=== PATIENT | male | born 1955 | race Caucasian/White ===

== ENCOUNTER 2018-05-03 08:02 | Outpatient (RCR) | payer OTHER | END 2018-05-14 | LOC: M CR 08:02 | DX: Z95.1 Presence of aortocoronary bypass graft (principal) | CPT/HCPCS: 93798 ==

== ENCOUNTER 2018-06-11 10:45 | Outpatient (RCR) | payer OTHER ==
--- NOTE | 2018-05-24 13:31 | CARECAPL ---
Assessment Account #s: Re-Assessment I General Diagnoses: CABG Date of event: Mar 22, 2018 Physician: Yamini Ontiveros M.D. Risk strat for cardiac event: Low Exercise Date: May 24, 2018 Assessment: Re-Assessment I Exercise Prescription Plan TO EDUCATE AND INCREASE ENDURANCE THROUGH MONITORED EXERCISE Modalities initiated: Treadmill (METS=2.99/RPE=-2), Cardio-Strider (METS=2.7/RPE=3), Arm Aerometer (METS=3.4/RPE=2), Dumbells (RPE=2), Recumbent Bike (METS=3.8/RPE=2) Frequency: 3 Duration (Minutes) 30-60 minutes total exercise a day. 8-15 work intervals in minutes. 5 MINUTES PRN rest intervals in minutes. Functional Capacity Goal Sustained Metabolic Equivalent of a task (MET) goal of 4.0-5.0 for 15-20 minutes. Intensity: 3-Moderate Progression (METS) Increase by: 0.5 METS every: 5 sessions TOLERATED Angina with ex: No Resistance Training: Yes Weight (pounds): 4 Reps: 12-15 Hypertension: Yes Hypertension controlled with: Medication Resting 110/62 Peak Exercise BP 144/80 Medications Scheduled Ascorbic Acid (Vitamin C), 500 MG PO DAILY, (Reported) Aspirin (Bhargav Aspirin), 325 MG PO DAILY, (Reported) Cholecalciferol (Vitamin D), 1,000 UNIT PO DAILY, (Reported) Lisinopril (Lisinopril), 20 MG PO DAILY, (Reported) Multivitamins (Centrum Silver Adult 50+), 1 TAB PO DAILY, (Reported) Omeprazole (Omeprazole), 20 MG PO DAILY, (Reported) Potassium Citrate (Potassium Citrate ER), 99 MG PO DAILY, (Reported) Rosuvastatin (Crestor), 10 MG PO DAILY, (Reported) Trazodone HCl (Trazodone HCl), 50 MG PO QHS, (Reported) Scheduled PRN Ranitidine HCl (Ranitidine HCl), 1 TAB PO DAILYPRN PRN for INDIGESTION, (Reported) Current BP 98/56 Med Change: No Intervention Resistance Training: Yes Education: Self pulse, Ex safety, S/S to report, Low NA diet, BP medication, RPE Scale, Equipment orientation, warm up/cool down, Understand BP, Physical Active Target Goals Individual exercise Rx (1) BP 140/90 or 130/80 if DM or CKD (1) Aerobic active 30+min 5 days per week (1) Nutrition Date: May 24, 2018 Assessment: Re-Assessment I Lipid- med/supplement CRESTOR 10 MG DAILY Med Change: No Diabetes Diabetes: No Monitor Blood Sugar at home: No Medication Change: No Blood sugar in range: No Weight Management Weight (lbs): 186.4 Special Diet: regular Vitamin/Supplements: Multivitamin, Vitamin C, Vitamin D Alcohol: none Current Weight (pounds): 186.4 Intervention Brancher Consult: No Nurse/patient discussion: Yes Dietary Goals STRIVING TO MAKE BETTER DIETARY CHOICES Diet Class: No Referral to Diabetes education: No Referral to lipid clinic: No Referral to weight mangement p: No Education Eating Healthy Target goal LDL-C<100 if triglycerides are >200 Non-HDL-C should be <130 (1) LDL-C<70 for high risk patients (4) HbA1c<7% (1) BMI<25 Waist cir<40in M/<35in F (1) Education Date: May 24, 2018 Assessment: Re-Assessment I Family Support: Yes Tobacco use: No Tobacco Use Smokeless tobacco: No Intervention Referral to smoking cessation: No Individual education and couns: No Tobacco Adjunct: No Education class schedule given: No Attended education classes: No Education: CAD, Risk factors, med compliance, cardiac A&P, Angina S/S, Sexuality Target Goals Complete cessation of tobacco use (1). Psychosocial Date: May 24, 2018 Assessment: Re-Assessment I Intervention Physician Consult: No Physician Referral: No Med Change: No Stress Management Class: No Uses Stress Management Skills: Yes Education Education: Coping Techniques, S/S depression, Relaxation Techniques Education Goals Met: Yes Target Goal Assess presence or absence of depression using a valid screening tool (1). Maximize coping skills (2). Positive support system (2). Patient/Program Goal Preventative Medication: Yes Aspirin, Yes JULIO C Inhibitor, Yes Statin/OTR lipid Lowering Fall Risk Assess: Yes (NOT FALL RISK) Provider Assessment Session Number: 5 Nam Brothers RN May 24, 2018 13:31
[~2018-06-11 10:45] MED LIST: BAYE325T12 PO; CENT1TAB PO; CRES10TA32 PO; LISI-538 PO; OMEP20TA PO; POTA10808 PO; RANI150T PO; TRAZ-160 PO; VITA100066 PO; VITA500T PO
== END 2018-06-14 ==
LOC: M CR 10:45
PROVIDERS: ATTEND Internal Medicine Cardiovascular Disease
DX: Z95.1 Presence of aortocoronary bypass graft (principal)

== ENCOUNTER 2018-07-14 08:56 | Outpatient (RCR) | payer OTHER ==
--- NOTE | 2018-06-17 14:08 | CARECAPL ---
Assessment Account #s: Re-Assessment I General Diagnoses: CABG Date of event: Mar 22, 2018 Physician: Vick Ramos Date Entered Program: May 24, 2018 Risk strat for cardiac event: Low Exercise Date: Jun 17, 2018 Assessment: Re-Assessment I Exercise Prescription Modalities initiated: Treadmill, Cardio-Strider, Nustep, Arm Aerometer, Dumbells, Recumbent Bike Frequency: 2-3 Duration (Minutes) minutes total exercise a day. work intervals in minutes. rest intervals in minutes. Functional Capacity Goal Sustained Metabolic Equivalent of a task (MET) goal of for minutes. Intensity: 2-Slight Progression (METS) Increase by: METS every: sessions Angina with ex: No Resistance Training: Yes Weight (pounds): 5 Reps: 8-12 Medications Scheduled Ascorbic Acid (Vitamin C), 500 MG PO DAILY, (Reported) Aspirin (Bhargav Aspirin), 325 MG PO DAILY, (Reported) Cholecalciferol (Vitamin D), 1,000 UNIT PO DAILY, (Reported) Lisinopril (Lisinopril), 20 MG PO DAILY, (Reported) Multivitamins (Centrum Silver Adult 50+), 1 TAB PO DAILY, (Reported) Omeprazole (Omeprazole), 20 MG PO DAILY, (Reported) Potassium Citrate (Potassium Citrate ER), 99 MG PO DAILY, (Reported) Rosuvastatin (Crestor), 10 MG PO DAILY, (Reported) Trazodone HCl (Trazodone HCl), 50 MG PO QHS, (Reported) Scheduled PRN Ranitidine HCl (Ranitidine HCl), 1 TAB PO DAILYPRN PRN for INDIGESTION, (Reported) Current BP 112/72 Med Change: No Target Goals Individual exercise Rx (1) BP 140/90 or 130/80 if DM or CKD (1) Aerobic active 30+min 5 days per week (1) Nutrition Date: Jun 17, 2018 Assessment: Re-Assessment I Med Change: No Current Weight (pounds): 191 Education Eating Healthy Target goal LDL-C<100 if triglycerides are >200 Non-HDL-C should be <130 (1) LDL-C<70 for high risk patients (4) HbA1c<7% (1) BMI<25 Waist cir<40in M/<35in F (1) Education Date: Jun 17, 2018 Assessment: Re-Assessment I Intervention Education class schedule given: Yes Education: CAD, Risk factors, med compliance, cardiac A&P, Angina S/S, Sexuality Target Goals Complete cessation of tobacco use (1). Psychosocial Date: Jun 17, 2018 Assessment: Re-Assessment I Stress Management Class: Yes Uses Stress Management Skills: Yes Education Education: Coping Techniques, S/S depression, Relaxation Techniques Target Goal Assess presence or absence of depression using a valid screening tool (1). Maximize coping skills (2). Positive support system (2). Provider Assessment Session Number: 12 Provider Assessment: No changes Norma Bhatt RN Jun 17, 2018 14:08
--- NOTE | 2018-07-14 14:35 | CARECAPL ---
Assessment Account #s: Re-Assessment II General Diagnoses: CABG Date of event: Mar 22, 2018 Date Entered Program: May 24, 2018 Risk strat for cardiac event: Low Exercise Date: Jul 14, 2018 Assessment: Re-Assessment II Exercise Prescription Plan educate and increase endurance through exercise Modalities initiated: Treadmill (mets 4.54 RPE 2), Nustep (mets 3.6 RPE 2), Arm Aerometer (mets 3.8 RPE 2), Dumbells (5lbs RPE 2), Recumbent Bike (mets 5.9 RPE 3), Elliptimill (mets 2.8 RPE 2) Frequency: 2-3 Duration (Minutes) 30-60 minutes total exercise a day. 15-20 work intervals in minutes. prn rest intervals in minutes. Functional Capacity Goal Sustained Metabolic Equivalent of a task (MET) goal of 4.0-5.0 for 15-20 minutes . Intensity: 3-Moderate Progression (METS) Increase by: 0.5 METS every: 3-5 sessions Angina with ex: No Target Heart Rate 94-126 age predicted Resistance Training: Yes Weight (pounds): 5 Reps: 12-15 Medications Scheduled Ascorbic Acid (Vitamin C), 500 MG PO DAILY, (Reported) Aspirin (Bhargav Aspirin), 325 MG PO DAILY, (Reported) Cholecalciferol (Vitamin D), 1,000 UNIT PO DAILY, (Reported) Lisinopril (Lisinopril), 20 MG PO DAILY, (Reported) Multivitamins (Centrum Silver Adult 50+), 1 TAB PO DAILY, (Reported) Omeprazole (Omeprazole), 20 MG PO DAILY, (Reported) Potassium Citrate (Potassium Citrate ER), 99 MG PO DAILY, (Reported) Rosuvastatin (Crestor), 10 MG PO DAILY, (Reported) Trazodone HCl (Trazodone HCl), 50 MG PO QHS, (Reported) Scheduled PRN Ranitidine HCl (Ranitidine HCl), 1 TAB PO DAILYPRN PRN for INDIGESTION, (Reported) Current BP 120/62 Med Change: No Intervention Education: Self pulse, Ex safety, S/S to report, Low NA diet, BP medication, RPE Scale, Equipment orientation, warm up/cool down, Understand BP, Physical Active Education Goals Met: Yes Target Goals Individual exercise Rx (1) BP 140/90 or 130/80 if DM or CKD (1) Aerobic active 30+min 5 days per week (1) Nutrition Date: Jul 14, 2018 Assessment: Re-Assessment II Med Change: No Diabetes Diabetes: No Medication Change: No Current Weight (pounds): 190 Intervention Surgical Oncologist Consult: No Nurse/patient discussion: Yes Dietary Goals eating healthier Diet Class: Yes Education Eating Healthy Education Goals Met: Yes Target goal LDL-C<100 if triglycerides are >200 Non-HDL-C should be <130 (1) LDL-C<70 for high risk patients (4) HbA1c<7% (1) BMI<25 Waist cir<40in M/<35in F (1) Education Date: Jul 14, 2018 Assessment: Re-Assessment II Family Support: Yes Intervention Education: CAD, Risk factors, med compliance, cardiac A&P, Angina S/S, Sexuality Education Goals Met: Yes Target Goals Complete cessation of tobacco use (1). Psychosocial Date: Jul 14, 2018 Intervention Physician Consult: No Physician Referral: No Med Change: No Stress Management Class: Yes Uses Stress Management Skills: Yes Education Education: Coping Techniques, S/S depression, Relaxation Techniques Education Goals Met: Yes Target Goal Assess presence or absence of depression using a valid screening tool (1). Maximize coping skills (2). Positive support system (2). Patient/Program Goal Preventative Medication: Yes Aspirin, Yes JULIO C Inhibitor, Yes Statin/OTR lipid Lowering Fall Risk Assess: No Provider Assessment Session Number: 20 Provider Assessment: Proceed with rehab Edelmira Moralez RN Jul 14, 2018 14:35
== END 2018-07-15 ==
LOC: M CR 08:56
PROVIDERS: ATTEND Internal Medicine Cardiovascular Disease
DX: Z95.1 Presence of aortocoronary bypass graft (principal)

== ENCOUNTER 2018-07-26 10:20 | Outpatient (RCR) | payer OTHER ==
--- NOTE | 2018-07-26 11:15 | CARECAPL ---
Assessment Account #s: Re-Assessment II (DISCHARGE) General Diagnoses: CABG Date of event: Mar 22, 2018 Physician: Yamini Ontiveros M.D. Date Entered Program: May 03, 2018 Risk strat for cardiac event: Low Exercise Date: Jul 26, 2018 Assessment: Followup/Discharge Exercise Prescription Plan TO EDUCATE AND EXERCISE THROUGH MONITORED EXERCISE PROGRAM Modalities initiated: Treadmill (METS=4.54/RPE=2), Nustep (METS=2.7/RPE=3), Arm Aerometer (METS=4.0/RPE=2), Dumbells (10#/RPE=3), Recumbent Bike (METS=6.3/RPE=3), Elliptimill (METS=3.1/RPE=2) Frequency: 3 Duration (Minutes) 30-60 minutes total exercise a day. 10-15 work intervals in minutes. 5 MIN PRN rest intervals in minutes. Functional Capacity Goal Sustained Metabolic Equivalent of a task (MET) goal of 4.0-5.0 for 15-20 minutes. Intensity: 3-Moderate Progression (METS) Increase by: 0.5 METS every: 3-5 sessions Angina with ex: No Target Heart Rate 94-126 AGE PREDICTED Resistance Training: Yes Weight (pounds): 10 Reps: 12-15 Hypertension: Yes Hypertension controlled with: Medication Resting 122/80 Peak Exercise BP 146/90 Medications Scheduled Ascorbic Acid (Vitamin C), 500 MG PO DAILY, (Reported) Aspirin (Bhargav Aspirin), 81 MG PO DAILY, (Reported) Cholecalciferol (Vitamin D), 1,000 UNIT PO DAILY, (Reported) Lisinopril (Lisinopril), 20 MG PO DAILY, (Reported) Multivitamins (Centrum Silver Adult 50+), 1 TAB PO DAILY, (Reported) Omeprazole (Omeprazole), 20 MG PO DAILY, (Reported) Potassium Citrate (Potassium Citrate ER), 99 MG PO DAILY, (Reported) Rosuvastatin (Crestor), 10 MG PO DAILY, (Reported) Trazodone HCl (Trazodone HCl), 50 MG PO QHS, (Reported) Scheduled PRN Ranitidine HCl (Ranitidine HCl), 1 TAB PO DAILYPRN PRN for INDIGESTION, (Reported) Current BP 102/60 Med Change: No Intervention Home exercise: Type (WALKING,BIKING), Frequency (3-5 DAYS/WEEK), Duration (30- 60 MINUTES) Resistance Training: Yes Education: Self pulse, Ex safety, S/S to report, Low NA diet, BP medication, RPE Scale, Equipment orientation, warm up/cool down, Understand BP, Physical Active Education Goals Met: Yes Target Goals Individual exercise Rx (1) BP 140/90 or 130/80 if DM or CKD (1) Aerobic active 30+min 5 days per week (1) Nutrition Date: Jul 26, 2018 Assessment: Followup/Discharge Lipid- med/supplement CRESTOR Med Change: No Diabetes Diabetes: No Monitor Blood Sugar at home: No Medication Change: No Blood sugar in range: Yes Weight Management Weight (lbs): 188 Special Diet: low salt, low-fat Vitamin/Supplements: Multivitamin, Vitamin C, Vitamin D Alcohol: none Diet Access Tool: Rate your plate Score: 59 Current Weight (pounds): 188 Intervention Audience Development Manager Consult: No Nurse/patient discussion: Yes Dietary Goals TO MAKE HEART HEALTHY CHOICES Diet Class: Yes Referral to Diabetes education: No Referral to lipid clinic: No Referral to weight mangement p: No Education Eating Healthy Education Goals Met: Yes Target goal LDL-C<100 if triglycerides are >200 Non-HDL-C should be <130 (1) LDL-C<70 for high risk patients (4) HbA1c<7% (1) BMI<25 Waist cir<40in M/<35in F (1) Education Date: Jul 26, 2018 Assessment: Followup/Discharge Learning Barriers: ready Knowledge Test Score: 9 Family Support: Yes Tobacco use: No Intervention Referral to smoking cessation: No Individual education and couns: No Tobacco Adjunct: No Education class schedule given: No Attended education classes: No Education: CAD, Risk factors, med compliance, cardiac A&P, Angina S/S, Sexuality Education Goals Met: Yes Target Goals Complete cessation of tobacco use (1). Psychosocial Date: Jul 26, 2018 Assessment: Followup/Discharge Psych Test (Initial/Discharge) Tool Used: CESD Score: 0 Intervention Physician Consult: No Physician Referral: No Med Change: No Stress Management Class: No Uses Stress Management Skills: Yes Education Education: Coping Techniques, S/S depression, Relaxation Techniques Education Goals Met: Yes Target Goal Assess presence or absence of depression using a valid screening tool (1). Maximize coping skills (2). Positive support system (2). Patient/Program Goal Preventative Medication: Yes Aspirin, Yes JULIO C Inhibitor, Yes Statin/OTR lipid Lowering Fall Risk Assess: Yes (NOT A FALL RISK) Provider Assessment Session Number: 23 Nam Brothers RN Jul 26, 2018 11:15
== END 2018-08-12 ==
LOC: M CR 10:20
PROVIDERS: ATTEND Internal Medicine Cardiovascular Disease
DX: Z95.1 Presence of aortocoronary bypass graft (principal)

== ENCOUNTER 2019-08-19 10:41 | Outpatient (RCR) | payer OTHER, SELFPAY ==
[~2019-08-19] VITALS: Ht 167.6 cm; Wt 85.9 kg
[~2019-08-19 10:41] MED LIST changes: +CRES10TA PO; -CRES10TA32 PO; +OMEP-358 PO; -OMEP20TA PO; -TRAZ-160 PO; +TRAZ-252 PO
[2019-08-22 10:47] VITALS: BP 118/74
== END 2019-09-13 ==
LOC: M CR 10:41
PROVIDERS: ATTEND Internal Medicine Cardiovascular Disease
DX: Z95.1 Presence of aortocoronary bypass graft (principal)

== ENCOUNTER 2022-07-24 18:16 | Emergency (ER) | payer MEDICARE, OTHER ==
[~2022-07-24] VITALS: Ht 167.6 cm; Wt 85.2 kg
[~2022-07-24 18:16] MED LIST changes: -LISI-538 PO; +LISI20TA33 PO; +VITA-243 PO; -VITA500T PO
[2022-07-25] MEDS ORDERED: METHOCARBAMOL 1,000 MG/10 ML VIAL IV ONE (01:45)
[2022-07-25] MEDS ORDERED: KETOROLAC 30 MG/ML 1ML VIAL IV ONE (02:00)
[2022-07-25 04:24] VITALS: BP 120/70
[2022-07-25] MEDS ORDERED: METH-1165 PO (05:37)
[2022-07-25] MEDS ORDERED: NAPR-837 PO (05:37)
== END 2022-07-25 05:54 | disposition home or self-care (01) ==
LOC: M ED 18:16
DX: M54.16 Radiculopathy, lumbar region (principal); N20.9 Urinary calculus, unspecified; K76.0 Fatty (change of) liver, not elsewhere classified; K57.30 Diverticulosis of large intestine without perforation or abscess without bleeding; I25.84 Coronary atherosclerosis due to calcified coronary lesion; I25.10 Atherosclerotic heart disease of native coronary artery without angina pectoris; I10 Essential (primary) hypertension; E78.5 Hyperlipidemia, unspecified; Z95.1 Presence of aortocoronary bypass graft; Z79.82 Long term (current) use of aspirin; Z79.899 Other long term (current) drug therapy; Z88.2 Allergy status to sulfonamides; Z88.8 Allergy status to other drugs, medicaments and biological substances